=== PATIENT | female | born 1955 | race American Indian/Alaskan Native ===

== ENCOUNTER 2017-05-10 13:41 | Outpatient (CLI) | payer BC ==
--- NOTE | 2017-05-10 15:40 | XRay Report ---
Right knee 4 views: History: Knee pain. Findings: Narrowing of the medial and patellofemoral compartment needed. Sclerotic articular surfaces with peripheral osteophytes suggestive early degenerative changes. No fracture or soft tissue calcification. 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
--- NOTE | 2017-05-10 15:40 | XRay Report ---
Left ankle 3 views: History: Ankle pain. Findings: No bony or articular abnormality. No fracture dislocation or soft tissue calcification. Impression: Essentially negative left ankle.
== END 2017-05-10 13:42 | disposition home or self-care (01) ==
LOC: SPVIMAG 13:41
PROVIDERS: ATTEND Orthopaedic Surgery
DX: M17.11 Unilateral primary osteoarthritis, right knee (principal); M25.572 Pain in left ankle and joints of left foot